=== PATIENT | female | born 1980 | race Two or more races ===

== ENCOUNTER 2018-08-03 09:03 | Emergency (ER) | payer OTHER ==
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
[2018-08-03 10:52] VITALS: BP 144/79
== END 2018-08-03 11:20 | disposition home or self-care (01) ==
DX: S16.1XXA Strain of muscle, fascia and tendon at neck level, initial encounter (principal); S39.012A Strain of muscle, fascia and tendon of lower back, initial encounter; V49.60XA Unspecified car occupant injured in collision with unspecified motor vehicles in traffic accident, initial encounter; Y92.410 Unspecified street and highway as the place of occurrence of the external cause; Y93.9 Activity, unspecified; Y99.9 Unspecified external cause status